=== PATIENT | male | born 1965 | race Caucasian/White ===

== ENCOUNTER 2018-03-19 09:05 | Emergency (ER) | payer OTHER ==
[2018-03-19 09:12] VITALS: BP 138/99; PULSE 64; TEMP 98.2; BMI 25.8
[2018-03-19] MEDS ORDERED: IBUPROFEN 600 MG TABLET (FP) PO ONE ×2 (09:36→09:55)
--- NOTE | 2018-03-19 09:43 | PDOC ---
History of Present Illness - General Chief Complaint: Injury Stated Complaint: LEFT SHOULDER PAIN Time Seen by Provider: 03/19/18 09:14 History Source: Patient Exam Limitations: No Limitations - History of Present Illness Initial Comments: 03/19/18 09:44 52 yo M w/ no PMH is here with Left cramping shoulder pain rated 7/10 which began 1 month ago and has slowly worsened to the point where it is difficult for him to sleep and go about his daily activities. The pain starts in the shoulder area and radiates down his entire arm. He feels numbness and tingling all the way up to the left thumb. It is worsened with most movement of the arm and he feels limited in his strength. There is nothing in specific he can do which makes him feel better. 03/19/18 09:52 Timing/Duration: 1 week, getting worse Severity: mild Modifying Factors: improves with: rest Past History - Travel Traveled outside of the country in the last 30 days: No Close contact w/someone who was outside of country & ill: No - Past Medical History Allergies/Adverse Reactions: Allergies Allergy/AdvReac Type Severity Reaction Status Date / Time Penicillins Allergy Verified 03/19/18 09:08 Home Medications: Ambulatory Orders Diazepam [Valium] 5 mg PO Q8H PRN #10 tablet MDD 3 03/19/18 Ibuprofen [Advil -] 400 mg PO ASDIR 03/19/18 Ibuprofen [Motrin -] 600 mg PO TID PRN #90 tablet MDD 3 03/19/18 Zolpidem Tartrate [Ambien] mg PO ASDIR 03/19/18 COPD: No Other medical history: DENIES - Suicide/Smoking/Psychosocial Hx Smoking Status: No Smoking History: Never smoked Have you smoked in the past 12 months: No Number of Cigarettes Smoked Daily: 0 Hx Alcohol Use: No Drug/Substance Use Hx: No Review of Systems - Review of Systems Able to Perform ROS?: Yes Comments:: 03/19/18 09:52 ROS MUSCULOSKELETAL: Positive: Left sided myalgia Absent:arthralgia, joint swelling NEUROLOGIC: Positive: focal weakness and paresthesias in the left arm Absent: headache, dizziness, unsteady gait, seizure, mental status changes, bladder or bowel incontinence CONSTITUTIONAL: Absent: fever, chills, diaphoresis, generalized weakness, malaise, loss of appetite HEENT: Absent: rhinorrhea, nasal congestion, throat pain, throat swelling, difficulty swallowing, mouth swelling, ear pain, eye pain, visual Changes CARDIOVASCULAR: Absent: chest pain, syncope, palpitations, irregular heart rate, lightheadedness , peripheral edema RESPIRATORY: Absent: cough, shortness of breath, dyspnea with exertion, orthopnea, wheezing, stridor, hemoptysis GASTROINTESTINAL: Absent: abdominal pain, abdominal distension, nausea, vomiting, diarrhea, constipation, melena, hematochezia GENITOURINARY: Absent: dysuria, frequency, urgency, hesitancy, hematuria, flank pain, genital pain SKIN: Absent: rash, itching, pallor HEMATOLOGIC/IMMUNOLOGIC: Absent: easy bleeding, easy bruising, lymphadenopathy, frequent infections ENDOCRINE: Absent: unexplained weight gain, unexplained weight loss, heat intolerance, cold intolerance PSYCHIATRIC: Absent: anxiety, depression, suicidal or homicidal ideation, hallucinations. Is the patient limited Italian proficient: No *Physical Exam - Vital Signs Last Vital Signs Temp Pulse Resp BP Pulse Ox 98.2 F 64 18 138/99 99 03/19/18 09:05 03/19/18 09:05 03/19/18 09:05 03/19/18 09:05 03/19/18 09:05 - Physical Exam Comments: 03/19/18 09:53 MUSCULOSKELETAL Left shoulder joint motion is limited due to pain. Hand strength is mildly weaker in the left hand. No bony deformities or tenderness. No CVA tenderness. NEUROLOGICAL: There is numbness and tingling in the left radial nerve distribution. Alert, awake, appropriate. Cranial nerves 2-12 intact. No deficits to light touch and temperature in face and lower extremities. No motor deficits in the in face, upper extremities and lower extremities. Normoreflexic in the upper and lower extremities. Normal speech. Toes are down-going bilaterally. Gait is normal without ataxia. GENERAL: Well developed, well nourished. Awake and alert. No acute distress. HEENT: Normocephalic, atraumatic. PERRLA, EOMI. No conjunctival pallor. Sclera are non- icteric. Moist mucous membranes. Oropharynx is clear. NECK: Supple. Full ROM. No JVD. Carotid pulses 2+ and symmetric, without bruits. No thyromegaly. No lymphadenopathy. CARDIOVASCULAR: Regular rate and rhythm. No murmurs, rubs, or gallops. Distal pulses are 2+ and symmetric. PULMONARY: No evidence of respiratory distress. Lungs clear to auscultation bilaterally. No wheezing, rales or rhonchi. ABDOMINAL: Soft. Non-tender. Non-distended. No rebound or guarding. No organomegaly. Normoactive bowel sounds. EXTREMITIES: No cyanosis. No clubbing. No edema. No calf tenderness. SKIN: Warm and dry. Normal capillary refill. No rashes. No jaundice. PSYCHIATRIC: Cooperative. Good eye contact. Appropriate mood and affect. Medical Decision Making - Medical Decision Making 03/19/18 09:58 52 yo M no pmh here with left shoulder pain. On there seems to be radiation from the shoulder down the arm. There is significant numbness and tingling throughout the L upper extremity. ROM is limited due to pain. There is good strength on L arm flexion but less strength on flexion. This can be a minor slipped disc injury and/or a muscle spasm. Plan: L shoulder xray, pain relief, and recommend physical therapy. *DC/Admit/Observation/Transfer Diagnosis at time of Disposition: Shoulder sprain - Discharge Dispostion Disposition: HOME Condition at time of disposition: Stable Decision to Admit order: No - Prescriptions Prescriptions: Diazepam [Valium] 5 mg PO Q8H PRN #10 tablet MDD 3 PRN Reason: Muscle Spasms Ibuprofen [Motrin -] 600 mg PO TID PRN #90 tablet MDD 3 PRN Reason: Pain - Referrals Referrals: Calin Hernandez MD [Staff Physician] - - Patient Instructions Printed Discharge Instructions: Shoulder Sprain Additional Instructions: no heavy lifting for one week. you can take ibuprofen 600 mg every 8 hrs as needed for pain. take valium 5 mg every 8 hrs as needed for muscle spasm. do not mix with alcohol, and do not drive after taking medication. follow up with an orthopedist, dr. hernandez. call to schedule within 1 week for persistant pain. return for any problems or concerns. - Post Discharge Activity
--- NOTE | 2018-03-19 10:30 | PDOC ---
Attending Attestation - Resident Resident Name: Paxton Hernandez - ED Attending Attestation I have performed the following: I have examined & evaluated the patient, The case was reviewed & discussed with the resident, I agree w/resident's findings & plan, Exceptions are as noted - HPI HPI: 03/19/18 10:27 52-year-old male no past medical history here today complaining of left shoulder and upper back pain. Patient states he was doing some increased exercise over the last week that subsequently played golf he is not usually a golfer. Believes he may have injured his shoulder and upper back during the game following day he describes severe pain in the scapular region as well as left shoulder radiating down the arm denies any new numbness or weakness however does get a tingling sensation in his thumb when he lifts his arm above 90. No previous shoulder injuries or surgeries no fevers chills no chest pain no problems breathing no other current complaints - Physicial Exam PE: 03/19/18 10:28 Awake alert no acute distress head is atraumatic neck no midline cervical spinal tenderness. There is trapezial muscle spasm and lateral thoracic muscle spasm and tenderness cardiac lung exam is unremarkable with normal breath sounds bilaterally heart is regular without any murmurs rubs or gallops. Extremity exam left shoulder has some anterior shoulder tenderness there is pain with abduction and extension at 90 the elbow and wrist are nontender with full range of motion. The median, radial, and ulnar nerve sensation is intact strength is 5 out of 5 throughout the upper extremity 2+ radial ulnar pulses bilaterally - Medical Decision Making 03/19/18 10:29 Differential diagnosis includes radicular pain from cervical strain and thoracic back and trapezial muscle spasm and strain versus intrinsic shoulder injury plan x-ray of the shoulder to rule out fracture anti-inflammatories and muscle relaxers we'll give the patient outpatient referral for orthopedics likely discharge home X-rays left shoulder unremarkable DC home with outpatient referral for orthopedist
== END 2018-03-19 10:30 | disposition home or self-care (01) ==
LOC: FER 09:05
DX: S43.402A Unspecified sprain of left shoulder joint, initial encounter (principal); X58.XXXA Exposure to other specified factors, initial encounter; Y93.9 Activity, unspecified; Y92.9 Unspecified place or not applicable; Z88.0 Allergy status to penicillin
CPT/HCPCS: 73030-TC-LT-FY; 99282-25

== ENCOUNTER 2020-06-12 14:11 | Emergency (ER) | payer OTHER ==
--- NOTE | 2020-06-12 15:50 | TELE ---
HPI Do you have fever,cough or shortness of breath?: No - General Reason For Visit: COVID 19 TEST History Source: Patient Exam Limitations: No Limitations - History of Present Illness 06/12/20 15:48 54-year-old male denies past medical history evaluated via telemedicine. Patient requesting COVID testing given he returned from [facility] 5 days ago. Patient denies symptoms such as cough, fever, shortness of breath, chills or any other complaint. ROS: as above PE: Speaking full sentences Past History - Medical History Allergies/Adverse Reactions: Allergies Allergy/AdvReac Type Severity Reaction Status Date / Time Penicillins Allergy Verified 03/19/18 09:08 Home Medications: Ambulatory Orders Diazepam [Valium] 5 mg PO Q8H PRN #10 tablet MDD 3 03/19/18 Ibuprofen [Advil -] 400 mg PO ASDIR 03/19/18 Ibuprofen [Motrin -] 600 mg PO TID PRN #90 tablet MDD 3 03/19/18 Zolpidem Tartrate [Ambien] mg PO ASDIR 03/19/18 COPD: No - Psycho-Social/Smoking History Smoking Status: No Smoking History: Never smoked Have you smoked in the past 12 months: No Number of Cigarettes Smoked Daily: 0 Discharge Diagnosis at time of Disposition: Suspected COVID-19 virus infection - Referrals Follow-up Referral(s): ON STAFF,NOT [Primary Care Provider] - - Patient Instructions Discharge Instructions: [facility]-Coronavirus Instructions - Discharge Condition at time of Disposition: Stable
== END 2020-06-12 15:50 | disposition home or self-care (01) ==
LOC: JVIRT 14:11
DX: Z11.59 Encounter for screening for other viral diseases (principal)
CPT/HCPCS: Q3014-GT; U0003

== ENCOUNTER 2022-07-20 04:32 | Day surgery (SDC) | payer OTHER ==
[2022-07-17 08:54] VITALS: BMI 26.6
[2022-07-20 09:26] VITALS: TEMP 98
[2022-07-20 09:41] VITALS: RESP 13
[2022-07-20 11:13] VITALS: BP 107/68; PULSE 58
== END 2022-07-20 11:00 | disposition home or self-care (01) ==
LOC: JASU-ENDO 04:32
PROVIDERS: ATTEND Internal Medicine Gastroenterology
PROC: 0DB98ZX Excision of Duodenum, Via Natural or Artificial Opening Endoscopic, Diagnostic (ICD-10-PCS; 2022-07-20)
PROC: 0DB78ZX Excision of Stomach, Pylorus, Via Natural or Artificial Opening Endoscopic, Diagnostic (ICD-10-PCS; 2022-07-20)
PROC: 0DB48ZX Excision of Esophagogastric Junction, Via Natural or Artificial Opening Endoscopic, Diagnostic (ICD-10-PCS; 2022-07-20)
PROC: 0DJD8ZZ Inspection of Lower Intestinal Tract, Via Natural or Artificial Opening Endoscopic (ICD-10-PCS; principal; 2022-07-20 09:00)
DX: Z12.11 Encounter for screening for malignant neoplasm of colon (principal); K57.30 Diverticulosis of large intestine without perforation or abscess without bleeding; K64.8 Other hemorrhoids; K44.9 Diaphragmatic hernia without obstruction or gangrene; K21.00 Gastro-esophageal reflux disease with esophagitis, without bleeding; K22.10 Ulcer of esophagus without bleeding
CPT/HCPCS: 43239; G0121; 88305-TC; 88312-TC; 88342-TC